=== PATIENT | female | born 1940 | race Caucasian/White ===

== ENCOUNTER 2018-02-03 12:16 | Inpatient (IN) | payer MEDICARE, OTHER ==
[~2018-02-03] VITALS: Ht 172.7 cm; Wt 82.1 kg
[2018-02-03] MEDS ORDERED: ATOR-2 PO (12:50)
[2018-02-03] MEDS ORDERED: LEVO125T PO (12:50)
[2018-02-03] MEDS ORDERED: LOSA1TAB25 PO (12:50)
[2018-02-03 13:42] LABS: BASOPHILS # (AUTO) 0.03 x10^3/uL (0-0.1); BASOPHILS % (AUTO) 1 % (0-1); EOSINOPHILS # (AUTO) 0.05 x10^3/uL (0-0.4); EOSINOPHILS % (AUTO) 1 % (1-7); LYMPHOCYTES # (AUTO) 1.51 x10^3/uL (1-3.4); LYMPHOCYTES % (AUTO) 24 % (22-44); MD NO; MEAN CORPUSCULAR HEMOGLOBIN 30.7 pg (27.0-34.8); MEAN CORPUSCULAR VOLUME 90.4 fL (80-100); MEAN PLATELET VOLUME 9.7 fL (7.4-10.4); MONOCYTES # (AUTO) 0.78 x10^3/uL (0.2-0.8); MONOCYTES % (AUTO) 12 % (2-9); NEUTROPHILS # (AUTO) 3.95 x10^3/uL (1.8-6.8); NEUTROPHILS % (AUTO) 62 % (42-75); PLATELET COUNT 207 x10^3/uL (130-400); RED BLOOD COUNT 4.19 x10^6/uL (3.82-5.3); RED CELL DISTRIBUTION WIDTH 13.3 % (9.6-15.2)
[2018-02-03 13:51] LABS: ALANINE AMINOTRANSFERASE 30 U/L (12-78); ALBUMIN 3.3 g/dL (3.4-5.0); ANION GAP 10 mmol/L (5-15); CALCIUM 8.5 mg/dL (8.5-10.1); CHLORIDE 111 mmol/L (98-107); CREATININE 0.85 mg/dL (0.55-1.02)
[2018-02-03 13:55] LABS: ALKALINE PHOSPHATASE 90 U/L (45-117); BILIRUBIN,TOTAL 0.5 mg/dL (0.2-1.0); T4 (THYROXINE) 10.1 mcg/dL (4.8-13.9); TOTAL PROTEIN 6.2 g/dL (6.4-8.2); TROPONIN I 0.031 ng/mL (0.000-0.045)
[2018-02-03 14:35] LABS: MICROSCOPIC AUTO
[2018-02-03 14:40] LABS: CULTURE INDICATED? YES
[2018-02-03] MEDS ORDERED: OMNIPAQUE 350 MG/ML, 100ML BOTTLE ONE (15:57)
[2018-02-03] MEDS ORDERED: ACETAMINOPHEN 325 MG TABLET PO PRN (17:30)
[2018-02-03] MEDS ORDERED: ASPIRIN 325 MG TABLET PO ONE (18:00)
[2018-02-03] MEDS ORDERED: ENOXAPARIN 40 MG/0.4 ML SQ SCH (18:30)
[2018-02-03 19:43] LABS: TROPONIN I 0.033 ng/mL (0.000-0.045)
[2018-02-03] MEDS ORDERED: ATORVASTATIN 10 MG TABLET PO SCH (21:00)
[2018-02-03] MEDS ORDERED: MELATONIN 5 MG TABLET PO SCH (21:00)
[2018-02-03] MEDS: POTASSIUM CHLORIDE 20 MEQ TAB.ER.PRT PO SCH (21:30)
[2018-02-03 22:00] VITALS: BP 169/84
[2018-02-04] VITALS (9 sets, daily range): BP systolic 120–179; BP diastolic 77–95
[2018-02-04 02:30] LABS: TROPONIN I 0.049 ng/mL (0.000-0.045)
[2018-02-04] MEDS ORDERED: POTASSIUM CHLORIDE 20 MEQ TAB.ER.PRT ONE ×2 (03:27→03:45)
[2018-02-04] MEDS: POTASSIUM CHLORIDE 20 MEQ TAB.ER.PRT PO SCH (05:31)
[2018-02-04] MEDS ORDERED: LEVOTHYROXINE 125 MCG TABLET PO SCH (06:00)
[2018-02-04 06:12] LABS: ANION GAP 6 mmol/L (5-15); CALCIUM 8.8 mg/dL (8.5-10.1); CHLORIDE 114 mmol/L (98-107)
[2018-02-04 06:15] LABS: CREATININE 0.75 mg/dL (0.55-1.02)
[2018-02-04 06:26] LABS: CHOLESTEROL, TOTAL 113 mg/dL (140-239); TRIGLYCERIDES 75 mg/dL (50-200); VLDL CHOLESTEROL 15 mg/dL (0-25)
[2018-02-04 06:28] LABS: CHOL/HDL RATIO 2.7; HDL CHOL % 37 % (28-40); HDL CHOLESTEROL (DIRECT) 42 mg/dL (40-60); LDL CHOLESTEROL,CALCULATED 56 mg/dL (54-169); LDL/HDL RATIO 1.3 (0.5-3.0)
[2018-02-04 06:31] LABS: HEMOGLOBIN A1C 5.5 % (4.2-6.3)
[2018-02-04] MEDS ORDERED: HYDROCHLOROTHIAZIDE 12.5 MG CAPSULE PO SCH (09:00)
[2018-02-04] MEDS ORDERED: LOSARTAN 50MG TABLET PO SCH (09:00)
[2018-02-04] MEDS ORDERED: REGADENOSON 0.4 MG/5 ML SYRINGE ONE (09:09)
[2018-02-04] MEDS ORDERED: CETI10CA PO (18:32)
[2018-02-04] MEDS ORDERED: FAMO20TA37 PO (18:32)
== END 2018-02-04 19:35 | disposition home or self-care (01) | DRG 189 ==
LOC: ED 15:08 → EDIP 16:18 → 4WST 18:57
PROVIDERS: ADMIT Internal Medicine; ATTEND Internal Medicine
DX: J96.00 Acute respiratory failure, unspecified whether with hypoxia or hypercapnia (principal); I71.2 Thoracic aortic aneurysm, without rupture; E87.6 Hypokalemia; K21.9 Gastro-esophageal reflux disease without esophagitis; R55 Syncope and collapse; E78.5 Hyperlipidemia, unspecified; Z90.49 Acquired absence of other specified parts of digestive tract; J40 Bronchitis, not specified as acute or chronic
CPT/HCPCS: 36415; 70450; 71046; 71275; 78452; 80048; 80053; 80061; 81001; 83036; 83735; 83880; 84436; 84443; 84484; 85025; 87086; 93005; 93017; 93306; 93880; 99285; J1650; J2785; Q9967; A9502; C9898